=== PATIENT | male | born 1985 | race Caucasian/White ===

== ENCOUNTER 2016-06-15 18:01 | Emergency (ER) | payer OTHER ==
[~2016-06-15] VITALS: Ht 185.4 cm; Wt 100.0 kg
[2016-06-15 18:35] VITALS: BP 130/87; PULSE 70; RESP 20; O2SAT 99
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
[2016-06-15] MEDS ORDERED: Iohexol 300 mg/mL 30 mL Inj PO ONE (21:15)
[2016-06-15 22:16] LABS: BASOPHILS % (AUTO) 0.3 % (0-3); EOSINOPHILS % (AUTO) 1.7 % (0-5); MONOCYTES % (AUTO) 7.7 % (4-12); Mean Corpuscular Hemoglobin 29.4 pg (27.0-35.0); NEUTROPHILS % (AUTO) 52.5 % (40-74); Platelet Count 143 bil/L (150-400)
[2016-06-15] MEDS ORDERED: _HYDROcodone/APAP 5-325 mg Tablet PO PRN (23:45)
[2016-06-16 00:28] VITALS: BP 126/74; PULSE 72; RESP 20; O2SAT 100
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
== END 2016-06-16 00:29 | disposition home or self-care (01) ==
LOC: SED 18:01
DX: R10.31 Right lower quadrant pain (principal); K92.2 Gastrointestinal hemorrhage, unspecified; T14.8 Other injury of unspecified body region; M25.561 Pain in right knee; M25.562 Pain in left knee; M79.671 Pain in right foot; V43.53XA Car driver injured in collision with pick-up truck in traffic accident, initial encounter; Y92.410 Unspecified street and highway as the place of occurrence of the external cause; Y93.89 Activity, other specified; Y99.8 Other external cause status; Z87.19 Personal history of other diseases of the digestive system; Z88.0 Allergy status to penicillin
CPT/HCPCS: 29515; 36415; 73562; 73630; 74177; 80053; 83690; 85025; 85610; 99284; Q9967